=== PATIENT | female | born 1965 | race American Indian/Alaskan Native ===

== ENCOUNTER 2025-05-28 14:12 | Outpatient (AMB) | payer BC, SELFPAY ==
[2025-05-28 14:27] VITALS: BP 118/77; PULSE 83; RESP 18; TEMP 36.2; O2SAT 98; BMI 34.4
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
== END 2025-05-28 14:38 | disposition home or self-care (01) ==
PROVIDERS: PCP Registered Nurse; Referring Provider Registered Nurse; Supervising Provider Obstetrics & Gynecology; Visit Provider Obstetrics & Gynecology
DX: N95.0 Postmenopausal bleeding (principal)
CPT/HCPCS: 99213; G0463

== ENCOUNTER → 2025-05-28 | Outpatient (CLI) | payer BC, SELFPAY ==
--- NOTE | 2025-05-28 15:13 | XR_ITS ---
Examination: Pelvic ultrasound, transabdominal, complete Technique: Transabdominal ultrasound of the pelvis performed using grayscale imaging Date and time of exam: May 28, 2025, 1534 hours INDICATIONS: Postmenopausal vaginal bleeding episode 1 month ago. FINDINGS: Uterus 8.5 cm endometrial stripe 17 mm No uterine mass Right ovary 2.3 cm arterial flow Left ovary 1.8 cm arterial flow IMPRESSION: Abnormally thickened endometrial stripe, differential would include endometrial hyperplasia, malignant neoplasm of the endometrium Recommend MRI pelvis follow-up pre and postcontrast
--- NOTE | 2025-05-28 15:13 | XR_ITS ---
Examination: Transvaginal ultrasound of the pelvis, complete Technique: Transvaginal sonographic images pelvis performed using jalloh scale imaging Exam date and time: May 28, 2025, 1545 hours INDICATIONS: Postmenopausal vaginal bleeding beginning 1 month ago FINDINGS: Uterus 7.5 cm endometrial stripe 14 mm Solid mass in the uterine body 12 x 11 x 12 mm Ovaries obscured by bowel gas IMPRESSION: Abnormal thickening of the endometrium, differential would include endometrial hyperplasia, malignant neoplasm of the endometrium, consider MRI pelvis follow-up pre and postcontrast.
== END | disposition home or self-care (01) ==
PROVIDERS: PCP Family Medicine; Referring Provider Obstetrics & Gynecology; Visit Provider Obstetrics & Gynecology
DX: R93.89 Abnormal findings on diagnostic imaging of other specified body structures (principal)
CPT/HCPCS: 76830; 76856